=== PATIENT | male | born 1985 | race Caucasian/White ===

== ENCOUNTER 2017-10-15 19:04 | Emergency (ER) | payer SELFPAY ==
[~2017-10-15] VITALS: Ht 177.8 cm; Wt 93.0 kg
[2017-10-15 20:00] LABS: PLATELET COUNT 281 x10^3mcL (130-400); RED CELL DISTRIBUTION WIDTH 13.2 % (11.5-14.5)
[2017-10-15 20:23] LABS: CALCIUM 9.1 mg/dL (8.5-10.1); CARBON DIOXIDE 26.5 mmol/L (21-32); CHLORIDE SERUM 106 mmol/L (98-107); CREATININE SERUM 0.9 mg/dL (0.7-1.3); GFR1 > 60 mL/min; GLUCOSE SERUM 103 mg/dL (74-106); POTASSIUM SERUM 3.6 mmol/L (3.5-5.1); SODIUM SERUM 143 mmol/L (136-145)
[2017-10-15 20:25] LABS: ALBUMIN 3.7 g/dL (3.4-5.0); ALKALINE PHOSPHATASE 83 U/L (46-116); ALT/SGPT 38 U/L (16-63); AST/SGOT 12 U/L (15-37); BILIRUBIN TOTAL 0.44 mg/dL (0.20-1.00); TOTAL PROTEIN, SERUM 7.3 g/dL (6.4-8.2)
[2017-10-15 21:18] VITALS: BP 137/91
[2017-10-15 21:19] LABS: AMPHETAMINE QUAL UR NONE DETECTED (See below)
== END 2017-10-15 21:18 | disposition home or self-care (01) ==
LOC: ED 19:04
PROVIDERS: Specialist
DX: R07.89 Other chest pain (principal)
CPT/HCPCS: 36415; 83880; J1885; Q0092